=== PATIENT | female | born 1975 | race Caucasian/White ===

== ENCOUNTER 2017-01-05 10:35 | Outpatient (CLI) ==
[2017-01-05 12:55] LABS: BASOPHILS % (AUTO) 0.5 % (0.0-3.0); EOSINOPHILS # (AUTO) 0.1 K/ul (0.0-0.7); EOSINOPHILS % (AUTO) 1.8 % (0.0-7.0); HEMATOCRIT 36.3 % (37.0-47.0); HEMOGLOBIN 12.2 g/dl (12.0-16.0); IMMATURE GRANULOCYTE % (AUTO) 0.3 % (0.0-5.0); LYMPHOCYTES % (AUTO) 52.2 (10.0-50.0); MEAN CORPUSCULAR HEMOGLOBIN 30.8 pg (27.0-31.0); MEAN CORPUSCULAR HGB CONC 33.6 (31.8-35.4); MEAN CORPUSCULAR VOLUME 91.7 fl (81.0-99.0); MONOCYTES # (AUTO) 0.4 K/uL (0.4-2.0); MONOCYTES % (AUTO) 9.1 (0-10); NEUTROPHILS # (AUTO) 1.4 K/ul (2.0-6.9); NEUTROPHILS % (AUTO) 36.1; PLATELET COUNT 226 10^3/uL (140-440); RED BLOOD COUNT 3.96 10^6/ul (4.20-5.40); WHITE BLOOD COUNT 3.83 K/ul (4.6-10.2)
[2017-01-05 13:05] LABS: BILIRUBIN,URINE Negative (NEGATIVE); KETONES,URINE Negative (NEGATIVE); LEUKOCYTE ESTERASE ,URINE Negative (NEGATIVE); NITRITE,URINE Negative (NEGATIVE); PROTEIN,URINE Negative (NEGATIVE); URINE, BLOOD Negative (NEGATIVE)
[2017-01-05 13:10] LABS: ADD URINE MICROSCOPIC NO
[2017-01-05 13:37] LABS: ALBUMIN 4.2 g/dL (3.4-5.0); ALBUMIN/GLOBULIN RATIO 1.4; ANION GAP 11.6; BILIRUBIN,TOTAL 0.66 mg/dL (0.00-1.20); BUN/CREATININE RATIO 17.85; CALCIUM 9.4 mg/dL (8.2-10.2); CHOL/HDL RATIO 2.7 (4.5-5.5); CREATININE 0.84 mg/dL (0.60-1.30); POTASSIUM 3.6 mmol/L (3.5-5.10); TOTAL PROTEIN 7.2 g/dL (6.4-8.2)
== END 2017-01-05 10:36 | disposition home or self-care (01) ==
LOC: LAB 10:35
PROVIDERS: ATTEND General Practice
DX: E03.9 Hypothyroidism, unspecified (principal); Z79.899 Other long term (current) drug therapy
CPT/HCPCS: 36415; 80053; 80061; 81001; 84443; 85025

== ENCOUNTER 2017-03-13 11:25 | Outpatient (CLI) | END 2017-03-13 11:26 | disposition home or self-care (01) | LOC: LAB 11:25 | PROVIDERS: ATTEND General Practice | DX: E03.9 Hypothyroidism, unspecified (principal) | CPT/HCPCS: 36415; 84443 ==

== ENCOUNTER 2018-02-25 13:56 | Outpatient (CLI) ==
--- NOTE | 2018-02-27 09:55 | MAMMO ---
EXAM: Digital screening mammogram with tomosynthesis HISTORY: Screening COMPARISON: None FINDINGS: Digital MLO and CC views of the right and left breast were performed. Tomosynthesis was performed. Computer aided detection utilized. There are scattered fibroglandular densities. There is no evidence for mass, asymmetry, distortion, or suspicious calcifications in either breast. IMPRESSION: 1. No evidence of malignancy in the right or left breast. 2. Annual screening mammogram is recommended in one year. BIRADS category 1, negative examination
== END 2018-02-25 13:57 | disposition home or self-care (01) ==
LOC: RAD 13:56
PROVIDERS: ATTEND Advanced Practice Midwife
DX: Z12.31 Encounter for screening mammogram for malignant neoplasm of breast (principal)
CPT/HCPCS: 77067

== ENCOUNTER 2018-04-16 12:08 | Outpatient (CLI) | END 2018-04-16 12:09 | disposition home or self-care (01) | LOC: FCC-LAB 12:08 | PROVIDERS: ATTEND General Practice | DX: E03.9 Hypothyroidism, unspecified (principal); Z79.899 Other long term (current) drug therapy | CPT/HCPCS: 36415; 80053; 80061; 81001; 84443; 85025 ==

== ENCOUNTER 2018-10-14 16:01 | Outpatient (CLI) ==
--- NOTE | 2018-10-14 16:45 | DI ---
EXAM: Two views of the abdomen. History: Diarrhea. Comparison: CT abdomen pelvis 01/13/2016 Findings: A few air-fluid levels are seen within the abdomen. Air is seen within the rectum. Bowel gas pattern is nonspecific but nonobstructive. Postsurgical changes of the stomach. No free intrap eritoneal air. No acute osseous abnormalities. No suspicious calcifications. Impression: Air-fluid levels seen within the abdomen probably indicate enteritis and diarrhea. No e vidence for bowel obstruction.
== END 2018-10-14 16:02 | disposition home or self-care (01) ==
LOC: LAB 16:01
PROVIDERS: ATTEND General Practice
DX: R19.7 Diarrhea, unspecified (principal); R10.84 Generalized abdominal pain
CPT/HCPCS: 36415; 82150; 83690; 85025

== ENCOUNTER 2018-12-24 12:22 | Outpatient (CLI) ==
--- NOTE | 2018-12-24 15:56 | DI ---
EXAM: Right hand three-view HISTORY: Swelling, other specified soft tissue disorder COMPARISON: None FINDINGS: No fracture or dislocation. Minimal cystic change suggested in the distal aspect of the f ifth metacarpal. Joint spaces maintained. No focal soft tissue abnormality. IMPERSSION: No fracture or dislocation.
== END 2018-12-24 12:23 | disposition home or self-care (01) ==
LOC: RAD 12:22
PROVIDERS: ATTEND General Practice
DX: M79.89 Other specified soft tissue disorders (principal); E03.9 Hypothyroidism, unspecified; Z00.00 Encounter for general adult medical examination without abnormal findings
CPT/HCPCS: 36415; 80053; 80061; 81001; 84443; 85025